=== PATIENT | male | born 1980 | race Caucasian/White ===

== ENCOUNTER 2019-02-10 13:22 | Emergency (ER) | payer MEDICAID ==
[~2019-02-10] VITALS: Ht 188 cm; Wt 95.0 kg
== END 2019-02-10 13:46 ==
LOC: ER 13:23
DX: T75.4XXA Electrocution, initial encounter (principal); F15.90 Other stimulant use, unspecified, uncomplicated; Z56.0 Unemployment, unspecified; Z88.6 Allergy status to analgesic agent; W86.8XXA Exposure to other electric current, initial encounter; Y93.89 Activity, other specified; Y92.89 Other specified places as the place of occurrence of the external cause; Y99.8 Other external cause status
CPT/HCPCS: 93005; 99283